=== PATIENT | female | born 1950 | race American Indian/Alaskan Native ===

== ENCOUNTER 2018-12-21 00:56 | Observation (INO) | payer MEDICARE ==
[2018-12-21 01:33] LABS: Basophils % (Auto) 0.5 % (0.0-1.8); Eosinophils # (Auto) 0.2 K/mm3 (0.0-0.4); Hematocrit 38.7 % (30.3-42.9); Hemoglobin 12.8 gm/dl (10.1-14.3); Lymphocytes # (Auto) 1.6 K/mm3 (1.2-5.4); Lymphocytes % (Auto) 40.1 % (13.4-35.0); Mean Corpuscular HGB Conc 33 % (30-34); Mean Corpuscular Volume 85 fl (79-97); Monocytes # (Auto) 0.4 K/mm3 (0.0-0.8); Monocytes % (Auto) 9.4 % (0.0-7.3); Platelet Count 209 K/mm3 (140-440); Red Blood Count 4.57 M/mm3 (3.65-5.03); Red Cell Distribution Width 14.4 % (13.2-15.2)
[2018-12-21 01:56] LABS: Alanine Aminotransferase 476 units/L (7-56); Albumin 4.1 g/dL (3.9-5); BUN/Creatinine Ratio 10; Blood Urea Nitrogen 8 mg/dL (7-17); Calcium 9.7 mg/dL (8.4-10.2); Hemolysis Index 10
[2018-12-21 05:21] LABS: Bilirubin,Urine SM (Negative); Blood,Urine NEG (Negative); Color,Urine Amber (Yellow); Mucus,Urine FEW /HPF; Protein,Urine <15 mg/dL mg/dL (Negative)
[2018-12-21 05:49] LABS: Ictotest,Urine Positive (Negative)
[2018-12-21] MEDS ORDERED: MORPHINE 2 MG/1 ML INJ IV ONE (07:47)
[2018-12-21] MEDS ORDERED: SODIUM CHLORIDE 0.9% 1000 ML 1,000 ML IV ONE (07:47)
[2018-12-21] MEDS ORDERED: ONDANSETRON 4 MG/2 ML INJ IV ONE (07:47)
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
--- NOTE | 2018-12-21 08:59 | Cat Scan Report ---
CT ABDOMEN AND PELVIS WITH CONTRAST HISTORY: MAIN: abd pain 100 ML OMNI 300. Right upper quadrant pain since last evening COMPARISON: None. TECHNIQUE: CT images of the abdomen and pelvis were obtained following administration of intravenous contrast. All CT scans at this location are performed using CT dose reduction for ALARA by means of automated exposure control. CONTRAST: 100 ml of intravenous contrast administered. FINDINGS: Lungs/bones: There is mild bibasilar atelectasis. Degenerative changes are present in the spine with nothing acute. Abdomen/pelvis: The gallbladder is distended with wall thickening but there is no internal stone dis ease. There is moderate intrahepatic and extrahepatic biliary ductal dilatation dilatation is seen to the level of the ampulla where there is distal CBD tapering but there is no gross stone disease or p ancreatic head mass. The pancreatic duct is also dilated but the pancreatic parenchyma otherwise appe ars unremarkable. The spleen, adrenals, left kidney, and proximal GI tract appear unremarkable. There are couple tiny s imple cysts in the right kidney. No pathologic peritoneal or retroperitoneal adenopathy. The uterus is abnormally lobulated and heterogeneous in appearance. Ovaries are not well seen. No pel cuca free fluid and no pathologic iliac chain or retroperitoneal adenopathy. There is colonic diverticulosis with no acute inflammatory change identified. The appendix is normal. IMPRESSION: 1. Biliary and pancreatic ductal findings as outlined above with no discrete stone disease or pancrea tic head mass identified. Gallbladder distention with mild wall thickening as may be seen with cholec ystitis may also be related to cholestasis. Recommend follow-up MRCP or ERCP for further evaluation. 2. Abnormal appearance of the uterus could be seen with extensive fibroid disease but consider follow -up pelvic ultrasound for more thorough evaluation. Signer Name: Wiliam Cowart MD Signed: 12/21/2018 8:54 AM Workstation Name: [id number]
--- NOTE | 2018-12-21 11:13 | Consultation ---
History of Present Illness Consult date: 12/21/18 Reason for consult: abdominal pain Chief complaint: abdominal pain - History of present illness History of present illness: 68 year old female who presents to the ED with a 1 day history of right upper qu adrant abdominal pain. she says that she was recently treated for a UTI and has noticed abdominal bloating and loss of appetite for the last three weeks with an unintentional weight loss of 12lbs. She denies having had this pain before. She says she has been otherwise healthy. Her work up in the ED showed significantly elevated liver enzymes. Past History Past Surgical History: hernia repair Social history: no significant social history Medications and Allergies Allergies Allergy/AdvReac Type Severity Reaction Status Date / Time aspirin [From Percodan] Allergy Unknown Verified 12/21/18 01:03 oxycodone [From Percodan] Allergy Unknown Verified 12/21/18 01:03 Home Medications Medication Instructions Recorded Confirmed Last Taken Type HYDROmorphone [Dilaudid] 2 mg PO Q6HR #20 tablet 05/26/13 Unknown Rx Review of Systems - Constitutional weight loss, poor appetite - Respiratory no shortness of breath - Gastrointestinal abdominal pain Exam Vital Signs Temp Pulse Resp BP Pulse Ox 98.2 F 75 18 136/83 97 12/21/18 01:16 12/21/18 01:16 12/21/18 01:16 12/21/18 01:16 12/21/18 01:16 - General physical appearance Positive: well developed, well nourished, no distress - Eyes Negative: icteric - Respiratory Positive: normal expansion, normal respiratory effort - Extremities Extremities: no ischemia - Abdomen Abdomen: Present: soft, other (well healed scar at umbilicus, mild tenderness to deep palpation RUQ) - Neurologic Neurologic: alert and oriented to time, place and person - Psychiatric Psychiatric: appropriate mood/affect, cooperative Results - Labs 12/21/18 01:19 12/21/18 01:19 Abnormal lab results 12/21/18 12/21/18 Range/Units 01:19 01:19 WBC 4.0 L (4.5-11.0) K/mm3 Lymph % (Auto) 40.1 H (13.4-35.0) % [place] % (Auto) 9.4 H (0.0-7.3) % Potassium 3.5 L (3.6-5.0) mmol/L Glucose 111 H (65-100) mg/dL Total Bilirubin 5.70 H (0.1-1.2) mg/dL AST 321 H (5-40) units/L ALT 476 H (7-56) units/L Alkaline Phosphatase 474 H (35-129) units/L Diabetes panel 12/21/18 Range/Units 01:19 Sodium 137 (137-145) mmol/L Potassium 3.5 L (3.6-5.0) mmol/L Chloride 100.6 (98-107) mmol/L Carbon Dioxide 22 (22-30) mmol/L BUN 8 (7-17) mg/dL Creatinine 0.8 (0.7-1.2) mg/dL Glucose 111 H (65-100) mg/dL Calcium 9.7 (8.4-10.2) mg/dL AST 321 H (5-40) units/L ALT 476 H (7-56) units/L Alkaline Phosphatase 474 H (35-129) units/L Total Protein 7.3 (6.3-8.2) g/dL Albumin 4.1 (3.9-5) g/dL Calcium panel 12/21/18 Range/Units 01:19 Calcium 9.7 (8.4-10.2) mg/dL Albumin 4.1 (3.9-5) g/dL Pituitary panel 12/21/18 Range/Units 01:19 Sodium 137 (137-145) mmol/L Potassium 3.5 L (3.6-5.0) mmol/L Chloride 100.6 (98-107) mmol/L Carbon Dioxide 22 (22-30) mmol/L BUN 8 (7-17) mg/dL Creatinine 0.8 (0.7-1.2) mg/dL Glucose 111 H (65-100) mg/dL Calcium 9.7 (8.4-10.2) mg/dL Adrenal panel 12/21/18 Range/Units 01:19 Sodium 137 (137-145) mmol/L Potassium 3.5 L (3.6-5.0) mmol/L Chloride 100.6 (98-107) mmol/L Carbon Dioxide 22 (22-30) mmol/L BUN 8 (7-17) mg/dL Creatinine 0.8 (0.7-1.2) mg/dL Glucose 111 H (65-100) mg/dL Calcium 9.7 (8.4-10.2) mg/dL Total Bilirubin 5.70 H (0.1-1.2) mg/dL AST 321 H (5-40) units/L ALT 476 H (7-56) units/L Alkaline Phosphatase 474 H (35-129) units/L Total Protein 7.3 (6.3-8.2) g/dL Albumin 4.1 (3.9-5) g/dL - Imaging CT scan - abdomen: report reviewed, image reviewed CT scan - chest: report reviewed, image reviewed (dilate biliary and pancreatic ducts, distended gallbladd with no visible stones or masses. reviewed with Dr. Cowart radiologist) Assessment and Plan 68 year old female with hyperbilirubinemia, and elevated liver enzymes with no clear etiology. afebrile, stable possible causes could be biliary stasis with gallbladder dysfunction, ampulla st enosis, an obstructing mass or stone that is not visible on CT. will follow up results of MRCP and follow with GI.
--- NOTE | 2018-12-21 11:34 | Gastroenterology Consultation ---
<SALVATORE ESCAMILLA - Last Filed: 12/21/18 12:19> History of Present Illness - Reason for Consult Consult date: 12/21/18 abdominal pain Requesting physician: CLAYTON AMARO - History of Present Illness Patient is a 68 y/o female who presented to ED with c/o abdominal pain. Upon admission she was found to have elevated LFTs with an abnormal CT (distended GB, intra/extra biliary dilatation) to which GI has been consulted. This morning patient was resting on stretcher in ED w/o acute distress. Reports RUQ intermittent abd pain x ~1 month. Pain radiates to back/shoulder with no exacerbating or alleviating factors. Admits to associated occasional N/V (last episode 4 days ago) and ~10lb wt loss. Denies fever, CP, SOB, signs of bleeding or LGI symptoms. No ETOH abuse or IV drug use. No hx or Fhxo of liver/pancreas disease. Past History Past Medical History: No medical history Past Surgical History: hernia repair Social history: no significant social history Family history: no significant family history Medications and Allergies Allergies Allergy/AdvReac Type Severity Reaction Status Date / Time aspirin [From Percodan] Allergy Unknown Verified 12/21/18 01:03 oxycodone [From Percodan] Allergy Unknown Verified 12/21/18 01:03 Home Medications Medication Instructions Recorded Confirmed Last Taken Type No Known Home Medications [No 12/21/18 12/21/18 Unknown History Reported Home Medications] Active Meds: medications reviewed/updated as required Review of Systems - Review of Systems All systems: negative Constitutional: weight loss Gastrointestinal: abdominal pain (RUC), nausea, vomiting Exam - Constitutional Vital Signs: Temp Pulse Resp BP Pulse Ox 98.2 F 71 16 136/83 100 12/21/18 01:16 12/21/18 04:10 12/21/18 04:10 12/21/18 01:16 12/21/18 04:10 General appearance: no acute distress - EENT Eyes: PERRL, EOM intact ENT: hearing intact - Respiratory Respiratory effort: normal Respiratory: bilateral: CTA - Cardiovascular Rhythm: regular - Gastrointestinal General gastrointestinal: Present: soft, tender (slight TTP RUQ), non-distended, normal bowel sounds - Neurologic Neurological: alert and oriented x3 - Labs CBC & Chem 7: 12/21/18 01:19 12/21/18 01:19 Lab Results: Laboratory Results - last 24 hr 12/21/18 12/21/18 12/21/18 01:19 01:19 Unknown WBC 4.0 L RBC 4.57 Hgb 12.8 Hct 38.7 MCV 85 MCH 28 MCHC 33 RDW 14.4 Plt Count 209 Lymph % (Auto) 40.1 H [place] % (Auto) 9.4 H Eos % (Auto) 4.0 Baso % (Auto) 0.5 Lymph # 1.6 [place] # 0.4 Eos # 0.2 Baso # 0.0 Seg Neutrophils % 46.0 Seg Neutrophils # 1.8 Sodium 137 Potassium 3.5 L Chloride 100.6 Carbon Dioxide 22 Anion Gap 18 BUN 8 Creatinine 0.8 Estimated GFR > 60 BUN/Creatinine Ratio 10 Glucose 111 H Calcium 9.7 Total Bilirubin 5.70 H AST 321 H ALT 476 H Alkaline Phosphatase 474 H Total Protein 7.3 Albumin 4.1 Albumin/Globulin Ratio 1.3 Lipase 47 Urine Color [place] Urine Turbidity Clear Urine pH 5.0 Ur Specific [place] 1.011 Urine Protein <15 mg/dl Urine Glucose (UA) Neg Urine Ketones Neg Urine Blood Neg Urine Nitrite Neg Urine Bilirubin Sm Urine Ictotest Positive Urine Urobilinogen 2.0 Ur Leukocyte Esterase Neg Urine WBC (Auto) 2.0 Urine RBC (Auto) 1.0 U Epithel Cells (Auto) 2.0 Urine Mucus Few Assessment and Plan 1.abdominal pain (RUQ) 2.elevated LFTs 3.abnormal CT -afebrile -WBC 4 -H/H, plt, and lipase WNL -LFTs- T.finesse 5.70, AST 321, ALT 476, alk phos 474 -abd CT showed distended gallbladder with wall thickening and moderate intra/extrahepatic biliary ductal dilation seen to level of ampulla where there is CBD tapering (no gross stone or mass) -pt reports RUQ abd pain x ~1 month with associated ~10lb wt loss and occasional N/V (last episode 4 days ago) -etiology-likely 2/2 obstructive process (ampulla stenosis, mass or stone not seen on CT, biliary stasis from GB dysfunction, etc.) vs other -surgery following -will order CA 19-9, INR, and MRCP for further evaluation -consider ERCP tomorrow based on MRCP results -continue to trend labs and supportive care -will follow <PETER LUNA - Last Filed: 12/21/18 17:08> Medications and Allergies Active Meds: Active Medications Acetaminophen (Tylenol) 650 mg PO Q4H PRN PRN Reason: Pain MILD(1-3)/Fever >100.5/KEITH Albuterol (Proventil) 2.5 mg IH Q4HRT PRN PRN Reason: Shortness Of Breath Hydromorphone HCl (Dilaudid) 0.5 mg IV Q4H PRN PRN Reason: Pain , Severe (7-10) Last Admin: 12/21/18 16:49 Dose: 0.5 mg Documented by: Ondansetron HCl (Zofran) 4 mg IV Q6H PRN PRN Reason: Nausea And Vomiting Sodium Chloride (Sodium Chloride Flush Syringe 10 Ml) 10 ml IV BID ASHOK Sodium Chloride (Sodium Chloride Flush Syringe 10 Ml) 10 ml IV PRN PRN PRN Reason: LINE FLUSH Exam - Constitutional Vital Signs: Temp Pulse Resp BP Pulse Ox 98.1 F 78 16 149/79 96 12/21/18 14:05 12/21/18 14:05 12/21/18 16:21 12/21/18 14:05 12/21/18 16:21 - Labs CBC & Chem 7: 12/21/18 01:19 12/21/18 01:19 Lab Results: Laboratory Results - last 24 hr 12/21/18 12/21/18 12/21/18 01:19 01:19 14:00 WBC 4.0 L RBC 4.57 Hgb 12.8 Hct 38.7 MCV 85 MCH 28 MCHC 33 RDW 14.4 Plt Count 209 Lymph % (Auto) 40.1 H [place] % (Auto) 9.4 H Eos % (Auto) 4.0 Baso % (Auto) 0.5 Lymph # 1.6 [place] # 0.4 Eos # 0.2 Baso # 0.0 Seg Neutrophils % 46.0 Seg Neutrophils # 1.8 PT INR Sodium 137 Potassium 3.5 L Chloride 100.6 Carbon Dioxide 22 Anion Gap 18 BUN 8 Creatinine 0.8 Estimated GFR > 60 BUN/Creatinine Ratio 10 Glucose 111 H Calcium 9.7 Total Bilirubin 5.70 H Direct Bilirubin Indirect Bilirubin AST 321 H ALT 476 H Alkaline Phosphatase 474 H Total Protein 7.3 Albumin 4.1 Albumin/Globulin Ratio 1.3 Lipase 47 Urine Color Urine Turbidity Urine pH Ur Specific [place] Urine Protein Urine Glucose (UA) Urine Ketones Urine Blood Urine Nitrite Urine Bilirubin Urine Ictotest Urine Urobilinogen Ur Leukocyte Esterase Urine WBC (Auto) Urine RBC (Auto) U Epithel Cells (Auto) Urine Mucus Hepatitis A IgM Ab Non-reactive Hep Bs Antigen Non-reactive Hep B Core IgM Ab Non-reactive Hepatitis C Antibody Non-reactive 12/21/18 12/21/18 12/21/18 14:00 14:00 Unknown WBC RBC Hgb Hct MCV MCH MCHC RDW Plt Count Lymph % (Auto) [place] % (Auto) Eos % (Auto) Baso % (Auto) Lymph # [place] # Eos # Baso # Seg Neutrophils % Seg Neutrophils # PT 18.8 H INR 1.60 H Sodium Potassium Chloride Carbon Dioxide Anion Gap BUN Creatinine Estimated GFR BUN/Creatinine Ratio Glucose Calcium Total Bilirubin 6.40 H Direct Bilirubin 4.9 H Indirect Bilirubin 1.5 AST ALT Alkaline Phosphatase Total Protein Albumin Albumin/Globulin Ratio Lipase Urine Color [place] Urine Turbidity Clear Urine pH 5.0 Ur Specific [place] 1.011 Urine Protein <15 mg/dl Urine Glucose (UA) Neg Urine Ketones Neg Urine Blood Neg Urine Nitrite Neg Urine Bilirubin Sm Urine Ictotest Positive Urine Urobilinogen 2.0 Ur Leukocyte Esterase Neg Urine WBC (Auto) 2.0 Urine RBC (Auto) 1.0 U Epithel Cells (Auto) 2.0 Urine Mucus Few Hepatitis A IgM Ab Hep Bs Antigen Hep B Core IgM Ab Hepatitis C Antibody Assessment and Plan MRCP unrevealing but ducts dilated, c/w obstruction. Pt complains of 3-4 wk hx of rUQ pain. - will do ERCP - explained risks, etc.
[2018-12-21] MEDS ORDERED: ALBUTEROL 2.5 MG/3 ML NEBU IH PRN (12:04)
[2018-12-21] MEDS ORDERED: ACETAMINOPHEN 325 MG TAB PO PRN (12:04)
[2018-12-21] MEDS ORDERED: ONDANSETRON 4 MG/2 ML INJ IV PRN (12:04)
--- NOTE | 2018-12-21 13:16 | History and Physical Report ---
History of Present Illness Date of admission: 12/21/18 12:04 Chief complaint: My stomach and my side have been hurting History of present illness: 68 YO Female with NO PMH presents to ED for evaluation. Pt states that she has experienced pain in her abdomen over the past 1 month with worsening symptoms over the past 5 days. Pt states that he pain is located on the right side of her abdomen and radiates to her right side. Pain is 4-6/10, worsened with meals, intermittent but has become more constant over the past 5 days. Pain is associated with nausea and multiple episodes of vomiting. Pt also reports intractible nausea and vomiting, and an inability to tolrate oral diet. Pt acknowledges 12lbs weight unintentional weight loss over the past 2-3 weeks. Pt transported to [facility] via private vehicle. Pt seen and evaluated in ED and found to have elevated LFT's as well as CT Abdomen findings consistent with Biliary Obstruction complicated by jaundice. Surgical team consulted in ED. GI team consulted in ED. Pt placed in observation status and admitted to SUDEEP unit. No prior admission for review. No medication listed for reconciliation at time of admission. Pt denies fever, chills, CP, Palpitations, Trauma, individual/family history of hepatobiliary disease or autoimmune disease. Past History Past Medical History: No medical history Past Surgical History: hernia repair Social history: no significant social history Family history: no significant family history Medications and Allergies Allergies Allergy/AdvReac Type Severity Reaction Status Date / Time aspirin [From Percodan] Allergy Unknown Verified 12/21/18 01:03 oxycodone [From Percodan] Allergy Unknown Verified 12/21/18 01:03 Home Medications Medication Instructions Recorded Confirmed Last Taken Type No Known Home Medications [No 12/21/18 12/21/18 Unknown History Reported Home Medications] Active Meds: Active Medications Acetaminophen (Tylenol) 650 mg PO Q4H PRN PRN Reason: Pain MILD(1-3)/Fever >100.5/KEITH Albuterol (Proventil) 2.5 mg IH Q4HRT PRN PRN Reason: Shortness Of Breath Ondansetron HCl (Zofran) 4 mg IV Q6H PRN PRN Reason: Nausea And Vomiting Sodium Chloride (Sodium Chloride Flush Syringe 10 Ml) 10 ml IV BID ASHOK Sodium Chloride (Sodium Chloride Flush Syringe 10 Ml) 10 ml IV PRN PRN PRN Reason: LINE FLUSH Review of Systems Constitutional: weight loss, no weight gain, no fever, no chills, no sweats, no night sweats Ears, nose, mouth and throat: no ear pain, no ear discharge, no tinnitis, no decreased hearing, no nose pain, no nasal congestion, no nasal discharge Breasts: no change in shape, no swelling, no mass Cardiovascular: no chest pain, no orthopnea, no palpitations, no edema Respiratory: no cough, no cough with sputum, no excessive sputum, no hemoptysis, no shortness of breath Gastrointestinal: abdominal pain, nausea, vomiting, no constipation, no change in bowel habits, no hematemesis, no melena, no hematochezia, no loss of appetite, no early satiety Genitourinary Female: flank pain, no pelvic pain, no menorrhagia, no dysuria, no urinary frequency Rectal: no pain, no incontinence, no bleeding Musculoskeletal: no neck stiffness, no arm numbness/tingling Integumentary: no rash, no pruritis, no redness, no sores, no wounds, no jaundice Neurological: no paralysis, no weakness, no parathesias, no numbness, no tingling, no seizures, no syncope Psychiatric: no anxiety, no memory loss, no change in sleep habits, no sleep disturbances, no insomnia, no hypersomnia, no change in appetite, no change in libido, no suicidal ideation Endocrine: no cold intolerance, no heat intolerance, no polyphagia, no excessive thirst, no polydipsia, no polyuria, no excessive sweating Hematologic/Lymphatic: no easy bruising, no easy bleeding, no lymphadenopathy, no lymphedema Allergic/Immunologic: no urticaria, no allergic rhinitis, no wheezing, no persistent infections, no anaphylaxis, no angioedema Exam - Constitutional Vitals: Temp Pulse Resp BP Pulse Ox 97.9 F 72 16 120/76 98 12/21/18 12:23 12/21/18 12:23 12/21/18 12:23 12/21/18 12:23 12/21/18 12:23 General appearance: Present: mild distress - EENT Eyes: Present: PERRL ENT: hearing intact, clear oral mucosa - Neck Neck: Present: supple, normal ROM - Respiratory Respiratory effort: normal Respiratory: bilateral: CTA - Cardiovascular Heart Sounds: Present: S1 & S2. Absent: rub, click - Extremities Extremities: pulses symmetrical, No edema Peripheral Pulses: within normal limits - Abdominal General gastrointestinal: Present: soft, non-tender, tender, normal bowel sounds. Absent: mass, hernia Localized gastrointestinal: tender: RUQ Female genitourinary: Present: normal - Integumentary Integumentary: Present: clear, warm, dry - Musculoskeletal Musculoskeletal: gait normal, strength equal bilaterally - Psychiatric Psychiatric: appropriate mood/affect, intact judgment & insight - Neurologic Neurologic: CNII-XII intact, moves all extremities Results - Labs CBC & Chem 7: 12/21/18 01:19 12/21/18 01:19 Labs: Abnormal lab results 12/21/18 12/21/18 Range/Units 01: 01:19 WBC 4.0 L (4.5-11.0) K/mm3 Lymph % (Auto) 40.1 H (13.4-35.0) % [place] % (Auto) 9.4 H (0.0-7.3) % Potassium 3.5 L (3.6-5.0) mmol/L Glucose 111 H (65-100) mg/dL Total Bilirubin 5.70 H (0.1-1.2) mg/dL AST 321 H (5-40) units/L ALT 476 H (7-56) units/L Alkaline Phosphatase 474 H (35-129) units/L Assessment and Plan - Patient Problems (1) Biliary tract obstruction Current Visit: Yes Status: Acute Plan to address problem: GI consulted in ED, Surgery consulted in ED, CT Abdomen/Pelvis, LFT, Fractionated bilirubin, MRCP, Hepatitis profile, bowel rest, (2) Elevated liver enzymes Current Visit: Yes Status: Acute Plan to address problem: Hepatitis profile, repeat cmp, MRCP, GI consulted, (3) Hyperbilirubinemia Current Visit: Yes Status: Acute Plan to address problem: MRCP as per GI team, CT Abdomen pelvis, liver profile, repeat LFT in AM (4) DVT prophylaxis Current Visit: Yes Status: Acute Plan to address problem: SCD to BLE while in bed, Pt ambulatory
--- NOTE | 2018-12-21 14:15 | Magnetic Resonance Report ---
MRI abdomen without contrast--MRCP INDICATION: RUQ pain, elevated LFTs, abnormal CT. COMPARISON: CT abdomen from earlier today FINDINGS: Lung bases are clear. No acute osseous abnormality. ABDOMEN: There is again gross distention of the gallbladder with moderate intrahepatic and extrahepat ic biliary ductal dilatation as well as mild pancreatic ductal dilatation. On this exam, there are a few small gallstones which were not apparent on the CT exam; however, there is no choledocholithiasis . There is also no gross pancreatic mass. The extrahepatic biliary ductal system is dilated to the le addison of the ampulla where there is tapering. Likewise the pancreas is otherwise unremarkable except fo r ductal dilatation. The spleen, adrenals, kidneys, and GI tract appear unremarkable. IMPRESSION: 1. Moderate intrahepatic and extrahepatic biliary ductal dilatation as well as pancreatic ductal dila tation with no mass or stone disease identified. There is distal tapering of the CBD the region of th e ampulla. Differential considerations include an ampullary mass or sphincter dysfunction. Recommend follow-up ERCP. 2. Cholelithiasis with gross gallbladder distention and wall thickening similar to the CT exam from at least in part likely related to cholestasis. Signer Name: Wiliam Cowart MD Signed: 12/21/2018 2:10 PM Workstation Name: [id number]
[2018-12-21 14:39] LABS: INR 1.6 (0.87-1.13)
[2018-12-21 14:46] LABS: Bilirubin,Direct 4.9 mg/dL (0-0.2)
[2018-12-21 14:50] LABS: Hepatitis B Surface Antigen Non-Reactive (Negative); Hepatitis C Virus Antibody Non-Reactive (NonReactive)
[2018-12-21] MEDS ORDERED: PHYTONADIONE(ADULT ONLY) 10 MG in SODIUM CHLORIDE 0.9% 50 ML IV ONE (16:00)
[2018-12-21] MEDS: HYDROmorphone 1 MG/1 ML INJ IV PRN (16:49)
--- NOTE | 2018-12-21 17:21 | Event Note ---
Date: 12/21/[address] Cowart. No obstructing stone or mass visualized. Spoke with GI, plan for ERCP tomorrow. Will continue to follow.
[2018-12-21] MEDS ORDERED: POLYETHYLENE GLYCOL 3350 17 GM POWDER PO PRN (18:36)
[2018-12-22 06:25] LABS: Basophils % (Auto) 0.6 % (0.0-1.8); Eosinophils # (Auto) 0.1 K/mm3 (0.0-0.4); Eosinophils % (Auto) 4.8 % (0.0-4.3); Hemoglobin 12.1 gm/dl (10.1-14.3); Lymphocytes # (Auto) 1.1 K/mm3 (1.2-5.4); Lymphocytes % (Auto) 38.4 % (13.4-35.0); Mean Corpuscular HGB Conc 33 % (30-34); Mean Corpuscular Volume 86 fl (79-97); Monocytes # (Auto) 0.2 K/mm3 (0.0-0.8); Monocytes % (Auto) 7.9 % (0.0-7.3); Platelet Count 197 K/mm3 (140-440); Red Cell Distribution Width 14.7 % (13.2-15.2)
[2018-12-22 06:31] LABS: INR 1.05 (0.87-1.13)
[2018-12-22 06:48] LABS: Alanine Aminotransferase 422 units/L (7-56); BUN/Creatinine Ratio 11; Blood Urea Nitrogen 8 mg/dL (7-17); Calcium 9.3 mg/dL (8.4-10.2); Hemolysis Index 0
--- NOTE | 2018-12-22 11:30 | Progress Note ---
Assessment and Plan Assessment and plan: Biliary tract obstruction GI and surgery following. MRCP completed and revealed no obstructing stone or mass. ERCP plan by GI today. Elevated liver enzymes As above. Hyperbilirubinemia Continue to monitor LFTs. DVT prophylaxis SCD to BLE while in bed, Pt ambulatory History Interval history: No new issues overnight. Hospitalist Physical - Constitutional Vitals: Temp Pulse Resp BP Pulse Ox 98.3 F 64 18 123/72 90 12/22/18 07:59 12/22/18 07:59 12/22/18 07:59 12/22/18 07:59 12/22/18 07:59 General appearance: Present: mild distress - EENT Eyes: Present: PERRL, EOM intact ENT: hearing intact, clear oral mucosa, dentition normal - Neck Neck: Present: supple, normal ROM - Respiratory Respiratory effort: normal Respiratory: bilateral: CTA - Cardiovascular Rhythm: regular Heart Sounds: Present: S1 & S2. Absent: gallop, rub - Extremities Extremities: no ischemia, No edema, Full ROM - Abdominal General gastrointestinal: soft, non-tender, non-distended, normal bowel sounds - Integumentary Integumentary: Present: clear, warm, dry - Neurologic Neurologic: CNII-XII intact, moves all extremities Results - Labs CBC & Chem 7: 12/22/18 05:39 12/22/18 05:39 Labs: Laboratory Last Values WBC 2.8 K/mm3 (4.5-11.0) L 12/22/18 05:39 RBC 4.30 M/mm3 (3.65-5.03) 12/22/18 05:39 Hgb 12.1 gm/dl (10.1-14.3) 12/22/18 05:39 Hct 37.0 % (30.3-42.9) 12/22/18 05:39 MCV 86 fl (79-97) 12/22/18 05:39 MCH 28 pg (28-32) 12/22/18 05:39 MCHC 33 % (30-34) 12/22/18 05:39 RDW 14.7 % (13.2-15.2) 12/22/18 05:39 Plt Count 197 K/mm3 (140-440) 12/22/18 05:39 Lymph % (Auto) 38.4 % (13.4-35.0) H 12/22/18 05:39 [place] % (Auto) 7.9 % (0.0-7.3) H 12/22/18 05:39 Eos % (Auto) 4.8 % (0.0-4.3) H 12/22/18 05:39 Baso % (Auto) 0.6 % (0.0-1.8) 12/22/18 05:39 Lymph # 1.1 K/mm3 (1.2-5.4) L 12/22/18 05:39 [place] # 0.2 K/mm3 (0.0-0.8) 12/22/18 05:39 Eos # 0.1 K/mm3 (0.0-0.4) 12/22/18 05:39 Baso # 0.0 K/mm3 (0.0-0.1) 12/22/18 05:39 Seg Neutrophils % 48.3 % (40.0-70.0) 12/22/18 05:39 Seg Neutrophils # 1.3 K/mm3 (1.8-7.7) L 12/22/18 05:39 PT 13.6 Sec. (12.2-14.9) 12/22/18 05:39 INR 1.05 (0.87-1.13) 12/22/18 05:39 Sodium 141 mmol/L (137-145) 12/22/18 05:39 Potassium 3.7 mmol/L (3.6-5.0) 12/22/18 05:39 Chloride 105.0 mmol/L (98-107) 12/22/18 05:39 Carbon Dioxide 24 mmol/L (22-30) 12/22/18 05:39 Anion Gap 16 mmol/L 12/22/18 05:39 BUN 8 mg/dL (7-17) 12/22/18 05:39 Creatinine 0.7 mg/dL (0.7-1.2) 12/22/18 05:39 Estimated GFR > 60 ml/min 12/22/18 05:39 BUN/Creatinine Ratio 11 % 12/22/18 05:39 Glucose 114 mg/dL (65-100) H 12/22/18 05:39 Calcium 9.3 mg/dL (8.4-10.2) 12/22/18 05:39 Total Bilirubin 5.80 mg/dL (0.1-1.2) H 12/22/18 05:39 Direct Bilirubin 4.9 mg/dL (0-0.2) H 12/21/18 14:00 Indirect Bilirubin 1.5 mg/dL 12/21/18 14:00 AST 270 units/L (5-40) H 12/22/18 05:39 ALT 422 units/L (7-56) H 12/22/18 05:39 Alkaline Phosphatase 458 units/L (35-129) H 12/22/18 05:39 Total Protein 6.9 g/dL (6.3-8.2) 12/22/18 05:39 Albumin 4.0 g/dL (3.9-5) 12/22/18 05:39 Albumin/Globulin Ratio 1.4 % 12/22/18 05:39 Lipase 47 units/L (13-60) 12/21/18 01:19 Urine Color [place] (Yellow) 12/21/18 Unknown Urine Turbidity Clear (Clear) 12/21/18 Unknown Urine pH 5.0 (5.0-7.0) 12/21/18 Unknown Ur Specific [place] 1.011 (1.003-1.030) 12/21/18 Unknown Urine Protein <15 mg/dl mg/dL (Negative) 12/21/18 Unknown Urine Glucose (UA) Neg mg/dL (Negative) 12/21/18 Unknown Urine Ketones Neg mg/dL (Negative) 12/21/18 Unknown Urine Blood Neg (Negative) 12/21/18 Unknown Urine Nitrite Neg (Negative) 12/21/18 Unknown Urine Bilirubin Sm (Negative) 12/21/18 Unknown Urine Ictotest Positive (Negative) 12/21/18 Unknown Urine Urobilinogen 2.0 mg/dL (<2.0) 12/21/18 Unknown Ur Leukocyte Esterase Neg (Negative) 12/21/18 Unknown Urine WBC (Auto) 2.0 /HPF (0.0-6.0) 12/21/18 Unknown Urine RBC (Auto) 1.0 /HPF (0.0-6.0) 12/21/18 Unknown U Epithel Cells (Auto) 2.0 /HPF (0-13.0) 12/21/18 Unknown Urine Mucus Few /HPF 12/21/18 Unknown Hepatitis A IgM Ab Non-reactive (NonReactive) 12/21/18 14:00 Hep Bs Antigen Non-reactive (Negative) 12/21/18 14:00 Hep B Core IgM Ab Non-reactive (NonReactive) 12/21/18 14:00 Hepatitis C Antibody Non-reactive (NonReactive) 12/21/18 14:00 Active Medications - Current Medications Current Medications: Generic Name Dose Route Start Last Admin Trade Name Freq PRN Reason Stop Dose Admin Acetaminophen 650 mg 12/21/18 12:04 Tylenol PO Q4H PRN Pain MILD(1-3)/Fever >100.5/KEITH Albuterol 2.5 mg 12/21/18 12:04 Proventil IH Q4HRT PRN Shortness Of Breath Hydromorphone HCl 0.5 mg 12/21/18 16:34 12/21/18 16:49 Dilaudid IV 0.5 mg Q4H PRN Administration Pain , Severe (7-10) Sodium Chloride 1,000 mls @ 50 mls/hr 12/22/18 12:00 Nacl 0.9% 1000 Ml IV DIRECT ASHOK Ondansetron HCl 4 mg 12/21/18 12:04 Zofran IV Q6H PRN Nausea And Vomiting Polyethylene Glycol 17 gm 12/21/18 18:36 Miralax 3350 PO DAILY PRN Constipation Sodium Chloride 10 ml 12/21/18 22:00 Sodium Chloride Flush Syringe 10 Ml IV BID ASHOK Sodium Chloride 10 ml 12/21/18 12:04 Sodium Chloride Flush Syringe 10 Ml IV PRN PRN LINE FLUSH
[2018-12-22] MEDS ORDERED: SODIUM CHLORIDE 0.9% 1000 ML 1,000 ML ONE (12:04)
--- NOTE | 2018-12-22 12:08 | Anesthesia Consultation ---
Anesthesia Consult and Med Hx Date of service: 12/22/18 - Airway Anesthetic Teeth Evaluation: Partials ROM Head & Neck: Adequate Mental/Hyoid Distance: Adequate Mallampati Class: Class II Intubation Access Assessment: Probably Good - Endocrine Hx Liver Disease: Yes (biliary obstruction) - Other Systems Hx Substance Use: Yes (uses CBD products)
--- NOTE | 2018-12-22 12:09 | Anesthesia Day of Surgery ---
Anesthesia Day of Surgery - Day of Surgery Patient Examined: Yes Patient H&P Reviewed: Yes Patient is NPO: Yes
[2018-12-22] MEDS ORDERED: PROPOFOL 200 MG/20 ML VIAL IV ONE (12:16)
[2018-12-22] MEDS ORDERED: MIDAZOLAM 2 MG/2 ML INJ ONE (12:17)
[2018-12-22] MEDS ORDERED: HYDROmorphone 1 MG/1 ML INJ ONE (12:17)
[2018-12-22] MEDS ORDERED: WATER FOR IRRIG STERILE 1,000 ML BOTTLE ONE (12:25)
[2018-12-22] MEDS ORDERED: SODIUM CHLORIDE 0.9% 100 ML ONE (12:27)
--- NOTE | 2018-12-22 13:25 | Post Operative Note ---
Pre-op diagnosis: Dilated CBD, abnormal LFTs Post-op diagnosis: other (Choledocholithiasis) Findings: 1. Bulging, but o/w normal major papilla 2. Normal pancreatic duct 3. CBD dilated to 12 mm, with 1 cm yellow stone swept out after sphincterotomy. Otherwise normal CBD. Procedure: ERCP with sphincterotomy and stone removal. Anesthesia: MAC Surgeon: PETER LUNA Estimated blood loss: minimal Pathology: none Condition: stable Disposition: floor (Observe overnight for complications, and if does well, D/C in AM. No blood thinners x 2 wks.)
[2018-12-22] MEDS ORDERED: LIDOCAINE MPF (2%) 20 MG/1 ML VIAL 5 ML ONE (13:28)
--- NOTE | 2018-12-22 13:58 | Operative Report ---
PROCEDURE: ERCP with sphincterotomy and stone removal. PREOPERATIVE DIAGNOSES: Abnormal liver enzymes and dilated common bile duct. POSTOPERATIVE DIAGNOSIS: Common bile duct stone. SEDATION: MAC by Anesthesia. HISTORY: The patient is a 68-year-old woman with a history of right upper quadrant pain x 4 weeks with elevated liver enzymes and dilated common bile duct. DESCRIPTION OF PROCEDURE: Indications, risks, and benefits were explained and consent was obtained. The patient was placed on abdomen on fluoroscopy table and sedated. [employer] video duodenoscope was passed through the mouth and oropharynx into the descending duodenum. Scope was then gradually withdrawn with close inspection of the mucosa until the major papilla was visualized. Selective cannulation of the pancreatic duct was initially achieved using the fusion sphincterotome. FINDINGS: 1. Bulging but otherwise normal major papilla. 2. Pancreatic duct is normal in course and caliber. 3. Common bile duct is dilated to 12 mm with a 1 cm distal filling defect. An 8 mm biliary sphincterotomy was performed. The duct was swept with a 12 mm balloon x 2 with return of yellow stone. The patient tolerated the procedure well without immediate complications. IMPRESSION: 1. Choledocholithiasis -- relieved with stone removal after sphincterotomy and balloon sweep. 2. Normal pancreatogram. RECOMMENDATIONS: 1. Monitor for complications. 2. Cholecystectomy as per surgery as regard to timing. JOB# [id number] HRC/NTS
--- NOTE | 2018-12-22 17:29 | Progress Note ---
Assessment and Plan Elevated liver enzymes due to obstructing CBD stone, s/p ERCP with stone extraction and sphincterotomy. afebrile and stable. Discussed with patient that she still has numerous gallstones in her gallbladder that may cause her some trouble in the future. She says right now she does not wish to have her gallbladder removed. She says that she . will think about it and follow up in the office. She expressed understanding that if she obstructs again, or becomes symptomatic that she will have less apprehension to have a cholecystectomy. If patient does well overnight, scheduled for tentative discharge tomorrow. Subjective Date of service: 12/22/18 Patient Reports: Positive: feels better (pt had an uncomplicated ERCP earlier today with extraction of large obstruction CBD stone and sphincterotomy. Pt has no complaints.) Objective Vital Signs - 12hr 12/22/18 12/22/18 12/22/18 07:59 11:50 11:53 Temperature 98.3 F 98.6 F 98.6 F Pulse Rate 64 70 70 Respiratory 18 15 15 Rate Blood Pressure 123/72 149/87 149/87 O2 Sat by Pulse 90 100 100 Oximetry 12/22/18 12/22/18 12/22/18 13:30 13:35 13:40 Temperature 97.8 F Pulse Rate 85 78 71 Respiratory 12 12 13 Rate Blood Pressure 129/83 140/88 132/82 O2 Sat by Pulse 93 96 96 Oximetry 12/22/18 12/22/18 12/22/18 13:45 14:00 14:15 Temperature 98.0 F Pulse Rate 73 74 71 Respiratory 13 18 16 Rate Blood Pressure 139/91 142/87 131/81 O2 Sat by Pulse 96 98 96 Oximetry 12/22/18 12/22/18 14:34 14:35 Temperature 97.8 F 97.8 F Pulse Rate 71 68 Respiratory 18 16 Rate Blood Pressure 146/86 146/86 O2 Sat by Pulse 94 96 Oximetry - General physical appearance well developed, no distress - Respiratory normal expansion, normal respiratory effort - Abdomen soft, other (mild tenderness to deep palpation) - Labs 12/22/18 05:39 12/22/18 05:39 Diabetes panel 12/22/18 Range/Units 05:39 Sodium 141 (137-145) mmol/L Potassium 3.7 (3.6-5.0) mmol/L Chloride 105.0 (98-107) mmol/L Carbon Dioxide 24 (22-30) mmol/L BUN 8 (7-17) mg/dL Creatinine 0.7 (0.7-1.2) mg/dL Glucose 114 H (65-100) mg/dL Calcium 9.3 (8.4-10.2) mg/dL AST 270 H (5-40) units/L ALT 422 H (7-56) units/L Alkaline Phosphatase 458 H (35-129) units/L Total Protein 6.9 (6.3-8.2) g/dL Albumin 4.0 (3.9-5) g/dL Calcium panel 12/22/18 Range/Units 05:39 Calcium 9.3 (8.4-10.2) mg/dL Albumin 4.0 (3.9-5) g/dL Pituitary panel 12/22/18 Range/Units 05:39 Sodium 141 (137-145) mmol/L Potassium 3.7 (3.6-5.0) mmol/L Chloride 105.0 (98-107) mmol/L Carbon Dioxide 24 (22-30) mmol/L BUN 8 (7-17) mg/dL Creatinine 0.7 (0.7-1.2) mg/dL Glucose 114 H (65-100) mg/dL Calcium 9.3 (8.4-10.2) mg/dL Adrenal panel 12/22/18 Range/Units 05:39 Sodium 141 (137-145) mmol/L Potassium 3.7 (3.6-5.0) mmol/L Chloride 105.0 (98-107) mmol/L Carbon Dioxide 24 (22-30) mmol/L BUN 8 (7-17) mg/dL Creatinine 0.7 (0.7-1.2) mg/dL Glucose 114 H (65-100) mg/dL Calcium 9.3 (8.4-10.2) mg/dL Total Bilirubin 5.80 H (0.1-1.2) mg/dL AST 270 H (5-40) units/L ALT 422 H (7-56) units/L Alkaline Phosphatase 458 H (35-129) units/L Total Protein 6.9 (6.3-8.2) g/dL Albumin 4.0 (3.9-5) g/dL
[2018-12-22] MEDS: SODIUM CHLORIDE 0.9% 1000 ML 1,000 ML IV SCH (18:45)
[2018-12-23] MEDS: SODIUM CHLORIDE 0.9% 1000 ML 1,000 ML IV SCH (07:20)
[2018-12-23] MEDS: HYDROmorphone 1 MG/1 ML INJ IV PRN (08:17)
--- NOTE | 2018-12-23 09:25 | Discharge Summary ---
Providers - Providers Date of Admission: 12/21/18 12:04 Date of discharge: 12/23/18 Attending physician: MARIAM ORTEGA Primary care physician: ADRIEL THAKUR Hospitalization Reason for admission: abd pain Condition: Stable Hospital course: 68 year old female who presented to the ED with a 1 day history of right upper quadrant abdominal pain [employer]. She reported that she was recently treated for a UTI and had noticed abdominal bloating and loss of appetite for the last three weeks with an unintentional weight loss of 12lbs. She denied having had this pain before. Her work up in the ED showed significantly elevated liver enzymes and imaging revealed dilated CBD. The patient was seen by GI and surgery consultation. MRCP completed and revealed no obstructing stone or mass. Therefore, patient underwent ERCP which reveal bulging but otherwise normal major papilloma, normal pancreatic duct and CBD dilated to 12 mm, with 1 cm yellow stone swept out after sphincterotomy. Otherwise normal CBD. Patient was monitored overnight without complications. Therefore, patient will be discharged home. Dedicated discharge time 35 minutes. Disposition: TO HOME OR SELFCARE Time spent for discharge: 35 - Discharge Diagnoses (1) Biliary tract obstruction Status: Acute (2) Elevated liver enzymes Status: Acute (3) Hyperbilirubinemia Status: Acute Core Measure Documentation - Palliative Care Palliative Care/ Comfort Measures: Not Applicable - Core Measures Any of the following diagnoses?: none Exam - Constitutional Vitals: Temp Pulse Resp BP Pulse Ox 97.9 F 80 18 130/83 100 12/23/18 07:53 12/23/18 07:53 12/23/18 08:17 12/23/18 07:53 12/23/18 07:53 General appearance: Present: no acute distress, well-nourished - EENT Eyes: Present: PERRL ENT: hearing intact, clear oral mucosa - Neck Neck: Present: supple, normal ROM - Respiratory Respiratory effort: normal Respiratory: bilateral: CTA - Cardiovascular Heart Sounds: Present: S1 & S2. Absent: rub, click - Extremities Extremities: pulses symmetrical, No edema Peripheral Pulses: within normal limits - Abdominal General gastrointestinal: Present: soft, non-tender, non-distended, normal bowel sounds Female genitourinary: Present: normal - Integumentary Integumentary: Present: clear, warm, dry - Musculoskeletal Musculoskeletal: gait normal, strength equal bilaterally - Psychiatric Psychiatric: appropriate mood/affect, intact judgment & insight - Neurologic Neurologic: CNII-XII intact, moves all extremities Plan Activity: advance as tolerated Weight Bearing Status: Weight Bear as Tolerated Diet: low fat, low cholesterol, low salt Follow up with: ADRIEL THAKUR NP-C [Primary Care Provider] - 7 Days PETER LUNA MD [Staff Physician] - 7 Days
--- NOTE | 2018-12-23 12:30 | Gastroenterology Progress Note ---
<SALVATORE ESCAMLILA - Last Filed: 12/23/18 12:51> Assessment and Plan 1.abdominal pain (RUQ) 2.elevated LFTs 3.abnormal CT -afebrile -WBC 2.8 -H/H, plt, and lipase WNL -INR WNL -LFTs- trending down (T.finesse 5.80, AST 270, ALT 422, alk phos 458) -abd CT and MRCP showed intra/extrahepatic biliary ductal dilation seen to level of ampulla (no gross stone or mass) -s/p ERCP yesterday that showed: 1. Bulging, but o/w normal major papilla 2. Normal pancreatic duct 3. CBD dilated to 12 mm, with 1 cm yellow stone swept out after sphincterotomy. Otherwise normal CBD. -clinically, patient is stable s/p ERCP with abd pain improved and LFTs trending down. No N/V or signs of bleeding. Tolerating liquids. -cholecystectomy per surgery -okay to advance diet as tolerated -avoid blood thinning medications x 2 weeks -continue supportive care -no further GI recommendations at this time, patient okay to be d/c with f/u in clinic as needed -will sign off, please call if needed Subjective Date of service: 12/23/18 Principal diagnosis: elevated LFTs Interval history: Patient sitting up in bed this am w/o acute distress. Reports feeling better with abd pain improved. No N/v. Tolerating liquids. Objective - Constitutional Vitals: Temp Pulse Resp BP Pulse Ox 97.9 F 80 18 130/83 100 12/23/18 07:53 12/23/18 07:53 12/23/18 10:00 12/23/18 07:53 12/23/18 10:00 General appearance: no acute distress - EENT Eyes: PERRL, EOM intact ENT: hearing intact - Respiratory Respiratory effort: normal - Cardiovascular Rhythm: regular - Gastrointestinal General gastrointestinal: Present: soft, non-tender, non-distended, normal bowel sounds - Neurologic Neurological: alert and oriented x3 - Labs CBC & Chem 7: 12/22/18 05:39 12/22/18 05:39 <PETER LUNA - Last Filed: 12/23/18 13:12> Assessment and Plan Pt doing well post-ERCP. Cholecystectomy as per Surgery and patient. F/u in 2-4 wks, to ensure normalization of LFTs. Objective - Constitutional Vitals: Temp Pulse Resp BP Pulse Ox 97.9 F 80 18 130/83 100 12/23/18 07:53 12/23/18 07:53 12/23/18 10:00 12/23/18 07:53 12/23/18 10:00 - Labs CBC & Chem 7: 12/22/18 05:39 12/22/18 05:39
[2018-12-23 14:12] VITALS: BP 128/79
== END 2018-12-23 18:55 | disposition home or self-care (01) ==
LOC: ED 00:56 → 2B-ACE 12:04
PROVIDERS: ADMIT Internal Medicine; ATTEND Hospitalist
DX: K80.71 Calculus of gallbladder and bile duct without cholecystitis with obstruction (principal); E80.6 Other disorders of bilirubin metabolism; R74.8 Abnormal levels of other serum enzymes; R11.2 Nausea with vomiting, unspecified
CPT/HCPCS: 36415; 43264; 74177; 74181; 74330; 80053; 80074; 81001; 82247; 82248; 83690; 85025; 85610; 94640; 96361; 96365; 96375; 96376; C1726; G0378; J1170; J2250; J2270; J2405; J2704; J3430; J7030; Q9967

== ENCOUNTER 2021-07-03 19:19 | Emergency (ER) | payer SELFPAY ==
[2021-07-03 19:38] VITALS: BP 117/78
== END 2021-07-03 22:25 | disposition left against medical advice (07) ==
LOC: ED 19:19
DX: M54.2 Cervicalgia (principal); Z53.21 Procedure and treatment not carried out due to patient leaving prior to being seen by health care provider; V89.2XXA Person injured in unspecified motor-vehicle accident, traffic, initial encounter; Y93.89 Activity, other specified; Y92.89 Other specified places as the place of occurrence of the external cause; Y99.8 Other external cause status